=== PATIENT | female | born 1990 | race Caucasian/White ===

== ENCOUNTER 2016-07-30 21:17 | Observation (INO) ==
--- NOTE | 2016-07-30 22:28 | OB/GYN History & Physical ---
Date of Encounter: 07/30/16 Time of Encounter: 22:28 Assessment and Plan (1) Vaginal itching Current visit: Yes Status: Acute Patient has completely benign exam with no blisters, erythema, or discharge. She had a negative vaginosis panel last week. Will do a UA. (2) 28 weeks gestation of Current visit: Yes Status: Acute History of Present Illness Chief complaint: Vaginal itching HPI: Ms. Thompson is a 26 year old female, at 28 weeks and 4 days who presents today with vaginal itching. Patient reports 3 days of vaginal itching. States that she has been using monostat because she believed it might be a yeast infection. She reports burning with urination, swelling, blisters, and cervical tenderness. She denies any fever/chills, shortness of breath, chest pain, other urinary symptoms, vaginal discharged. On exam patient has no erythema, swelling or blisters. She was tender to palpation in some areas. She had no significant vaginal discharge. Past Med Surg Social Fam HX - Past Medical History Medical history: asthma, other Psychiatric history: anxiety, depression, PTSD - Past Surgical History Surgical History: - Social History Smoking Status: Never smoker Smokeless Tobacco Status: No Alcohol use: none Drug use: none - Family History Mother Adopted: No Family Member Ethnicity: Non- Living Status: Still Living Hx Family Cardiac Disorders: No Hx Family Respiratory Disorders: No Hx Family Cancer: No Hx Family GI Disorders: No Hx Family Endocrine Disorder: Yes (hypothyroidism) Hx Family Neuromuscular Disorders: No Hx Family Neurologic Disorders: No Hx Family HEENT Disorders: No Hx Family Autoimmune Disorders: No Father Adopted: [place]: Isai Family Member Ethnicity: Non- Living Status: Still Living Hx Family Cardiac Disorders: No Hx Family Respiratory Disorders: No Hx Family Cancer: No Hx Family GI Disorders: No Hx Family Genitourinary Disorders: No Hx Family Endocrine Disorder: No Hx Family Musculoskeletal Disorders: No Hx Family Neuromuscular Disorders: No Hx Family Neurologic Disorders: No Hx Family HEENT Disorders: No Hx Family Autoimmune Disorders: No Hx Family Reproductive Disorders: No Hx Family Psychosocial Disorders: No Hx Family Medical Disorders: No Obstetrical History - Pregnancies : 5 Para: 3 Medications and Allergies Caplet 1 tab PO DAILY 03/15/16 [History] Progesterone 200 mg VG DAILY 07/07/16 [History] Allergies Penicillins Allergy (Verified 06/30/16 17:24) Difficulty Breathing hives Review of System OB - Constitutional Constitutional ROS IM: no fever(s) - Cardiovascular Cardiovascular: no chest pain, no leg edema, no lightheadedness, no palpitations - Respiratory Respiratory: no cough, no dyspnea, no wheezing - Gastrointestinal Gastrointestinal: cramping, no abdominal pain, no change in bowel habits, no change in stool character, no diarrhea, no nausea, no vomiting - Genitourinary Genitourinary: pelvic pain, vaginal pruritis, no difficulty urinating, no difficulty voiding, no urinary frequency, no urinary hesitancy, no urinary incontinence, no urinary urgency, no vaginal discharge, no vaginal odor - Neurological Nerological: no syncope Exam - Constitutional Constitutional: well developed, well nourished, no acute distress - HEENT HEENT: Normocephaly, Mucus Membranes Moist - Lungs Respiratory exam: CTAB - Abdomen Abdomen: Present: bowel sounds normal - Extremities Extremities exam: warm - Vagina Vagina: Present: normal moisture. Absent: discharge, ulceration Results All other labs normal. - VTE Reasons for not Prescribing Prophylaxis: Treatment not Indicated - Low risk for VTE
[2016-07-30 22:29] LABS: Bilirubin,Urine Negative (Negative); Blood,Urine Negative (Negative); Clarity,Urine Cloudy (Clear); Color,Urine Yellow (Yellow); Glucose,Urine (UA) Normal (Normal); Ketones,Urine Negative (Negative); Leukocyte Esterase,Urine Moderate (Negative); Nitrite,Urine Negative (Negative); Protein,Urine Negative (Neg-Trace); Specific Gravity,Urine 1.009 (1.010-1.025); Urobilinogen,Urine Normal (Normal)
[2016-07-30 22:30] LABS: Bacteria,Urine Few per hpf (None-Few); Hyaline Casts,Urine None Seen per lpf (None-Few); RBC,Urine 0-3 per hpf (0-3); Squamous Epithelial Cell,Urine Many per lpf (None-Few)
[2016-07-30 22:37] LABS: Calcium Oxalate Crystals,Urine Present
--- NOTE | 2016-07-30 22:52 | Discharge Summary ---
Date of Encounter: 07/30/16 Time of Encounter: 22:54 - Discharge Diagnosis (1) Vaginal itching Priority: Primary Status: Acute Comments: Patient with vaginal itching. Urine analysis largely normal and recent vaginosis panel negative. Exam benign with no erythema or swelling. No significant vaginal discharge. Patient will be discharged home to follow up with her OB. (2) 28 weeks gestation of Priority: Secondary Status: Acute - Discharge Medications Home Medications: Caplet 1 tab PO DAILY 03/15/16 [History] Progesterone 200 mg VG DAILY 07/07/16 [History] Allergies/Adverse Reactions: Allergies Penicillins Allergy (Verified 06/30/16 17:24) Difficulty Breathing hives Data Procedures and tests throughout hospitalization: Laboratory Tests 07/30/16 22:15 Urine Color Yellow Urine Clarity Cloudy A Urine pH 7.0 Ur Specific [place] 1.009 L Urine Protein Negative Urine Glucose (UA) Normal Urine Ketones Negative Urine Blood Negative Urine Nitrite Negative Urine Bilirubin Negative Urine Urobilinogen Normal Ur Leukocyte Esterase Moderate H Urine Microscopic RBC 0-3 Urine Microscopic WBC 5-15 H Ur Squamous Epith Cells Many H Calcium Oxalate Crystal Present Urine Bacteria Few Hyaline Casts None Seen Ur Culture Indicated? YES A Labs on day of discharge: Labs from last 24 hours 07/30/16 22:15 Urine Color Yellow Urine Clarity Cloudy A Urine pH 7.0 Ur Specific [place] 1.009 L Urine Protein Negative Urine Glucose (UA) Normal Urine Ketones Negative Urine Blood Negative Urine Nitrite Negative Urine Bilirubin Negative Urine Urobilinogen Normal Ur Leukocyte Esterase Moderate H Urine Microscopic RBC 0-3 Urine Microscopic WBC 5-15 H Ur Squamous Epith Cells Many H Calcium Oxalate Crystal Present Urine Bacteria Few Hyaline Casts None Seen Ur Culture Indicated? YES A - Impressions Urine analysis largely within normal limits. Date of admission: 07/30/16 21:17 Discharging clinician: Frederick Patterson Anticipated date of discharge: 07/30/16 - Patient Status Disposition: Home, Self-Care Condition: Good Functional capacity at discharge: independent ambulation Overall status at discharge: patient is back to baseline - Discharge Instructions Follow Up With: Loan Fay MD [Partnered Physician] - Additional Instructions: Please call to make a follow up appointment with your OB. - Diet and Activity Activity: resume usual activities as tolerated Diet: advance to your usual diet Hospital Course UPHOLSTERY TECH Time Attestation: Total time spent providing and/or coordinating discharge services: Exam - Constitutional General appearance IM: A&O X 3, no acute distress - Respiratory Respiratory exam: Present: CTAB. Absent: decreased breath sounds, wheezes - Cardiovascular Cardiovascular exam IM: Absent: irregular rhythm - GI/Abdominal GI/Abdominal exam IM: soft - Extremities Exam Extremities exam IM: Present: normal inspection. Absent: pedal edema - Neurological Exam Neurological exam: alert, CN II-XII intact, oriented X3 - VTE Reasons for not Prescribing Prophylaxis: Treatment not Indicated - Low risk for VTE
== END 2016-07-30 22:56 | disposition home or self-care (01) ==
LOC: 1NENULAB
PROVIDERS: ADMIT Obstetrics & Gynecology; ATTEND Obstetrics & Gynecology

== ENCOUNTER 2016-08-03 17:02 | Observation (INO) ==
[2016-08-03 18:01] LABS: Bilirubin,Urine Negative (Negative); Blood,Urine Trace-intact (Negative); Color,Urine Yellow (Yellow); Glucose,Urine (UA) Normal (Normal); Ketones,Urine Negative (Negative); Leukocyte Esterase,Urine Trace (Negative); Nitrite,Urine Negative (Negative); Protein,Urine Negative (Neg-Trace); Specific Gravity,Urine 1.015 (1.010-1.025); Urobilinogen,Urine Normal (Normal)
[2016-08-03] MEDS ORDERED: Ringers Solution, Lactated 500 ML IVC ONE (18:03)
[2016-08-03 18:04] LABS: Bacteria,Urine Few per hpf (None-Few); Hyaline Casts,Urine None Seen per lpf (None-Few); RBC,Urine 0-3 per hpf (0-3); Squamous Epithelial Cell,Urine Many per lpf (None-Few)
[2016-08-03 18:05] LABS: Clarity,Urine Hazy (Clear)
[2016-08-03] MEDS ORDERED: Ringers Solution, Lactated 1,000 ML IVC SCH (18:15)
--- NOTE | 2016-08-10 07:40 | OB Labor Progress Note ---
Date of Encounter: 08/03/16 Time of Encounter: 18:50 Labor Progress Note - Plan Plan: Jay is a 26 y/o with a h/o multiple visits to L and D who came in saying complaining of ctxs, FFN was neg, cervix was closed, UA unremarkable, FHT CAT 1. Patient discharged.
== END 2016-08-03 19:09 | disposition home or self-care (01) ==
LOC: 1NENULAB → MERGE 17:02
PROVIDERS: ADMIT Student in an Organized Health Care Education/Training Program; ATTEND Student in an Organized Health Care Education/Training Program

== ENCOUNTER 2016-08-26 21:32 | Observation (INO) ==
[2016-08-26 22:14] LABS: Bilirubin,Urine Negative (Negative); Blood,Urine Moderate (Negative); Clarity,Urine Clear (Clear); Color,Urine Yellow (Yellow); Glucose,Urine (UA) Normal (Normal); Ketones,Urine Negative (Negative); Leukocyte Esterase,Urine Negative (Negative); Nitrite,Urine Negative (Negative); Protein,Urine Negative (Neg-Trace); Specific Gravity,Urine 1.015 (1.010-1.025); Urobilinogen,Urine Normal (Normal)
[2016-08-26 22:18] LABS: Hyaline Casts,Urine None Seen per lpf (None-Few); RBC,Urine 0-3 per hpf (0-3); Squamous Epithelial Cell,Urine Many per lpf (None-Few); WBC,Urine 0-3 per hpf (0-3)
[2016-08-26 22:30] LABS: Bacteria,Urine Few per hpf (None-Few)
--- NOTE | 2016-08-26 22:40 | OB/GYN Progress Note ---
Date of Encounter: 08/27/16 Time of Encounter: 22:33 - Assessment and Plan (1) 32 weeks gestation of Status: Acute monitor for 1 hour to r/o active labor monitor FHT continue routine care (2) Round ligament pain Status: Acute supportive care recommend supportive band Tylenol as needed for pain Subjective - Subjective Principal diagnosis: Left lower pelvic pain Interval history: F at [address] Fay pt c/o left lowe quadrant/pelvic pain which started 1 week ago. She reports worseing of pain today, she states that pain went from dull ache to a sharper intermittent pain that lasts a few seconds resolves spontaneously on its own after a few seconds. When laying supine pt states pain in lumbar pain that wraps around to the left groin/pelvic region >L side. Pt states no vaginal discharge, fluid loss, bright red blood or passing of clots. No syncope, lightheadedness, CP, SOB Pt reports 2 previous placental abruptions at 32 and 34 weeks with previous pregnancies. Antepartum ROS: other (plevic pain) Objective - Vital Signs Vital Signs: Intake and Output 08/26/16 08/26/16 08/26/16 07:59 15:59 23:59 Other: Weight 77.7 kg Patient Weight 08/26/16 23:59 Weight 77.7 kg - Exam FHR: auscultation normal Abdomen: Present: normal appearance, soft, gravid, tenderness (mild LLQ ttp, - rebound, guarding, rigidity). Absent: distention Uterus: Present: normal, firm - Labs Labs: Abnormal lab results Urine Blood Moderate (Negative) H 08/26/16 21:50 Ur Squamous Epith Cells Many per lpf (None-Few) H 08/26/16 21:50
== END 2016-08-26 23:45 | disposition home or self-care (01) ==
LOC: 1NENULAB
PROVIDERS: ADMIT Obstetrics & Gynecology; ATTEND Obstetrics & Gynecology

== ENCOUNTER 2016-08-29 14:18 | Observation (INO) ==
[2016-08-29 15:14] LABS: Bilirubin,Urine Negative (Negative); Blood,Urine Small (Negative); Clarity,Urine Turbid (Clear); Color,Urine Yellow (Yellow); Glucose,Urine (UA) Normal (Normal); Ketones,Urine Trace mg/dL (Negative); Leukocyte Esterase,Urine Negative (Negative); Nitrite,Urine Negative (Negative); Protein,Urine 30 mg/dL (Neg-Trace); Specific Gravity,Urine 1.023 (1.010-1.025); Urobilinogen,Urine Normal (Normal)
[2016-08-29 15:15] LABS: Bacteria,Urine Moderate per hpf (None-Few); Squamous Epithelial Cell,Urine Many per lpf (None-Few)
[2016-08-29 15:48] LABS: Calcium Oxalate Crystals,Urine Present
[2016-08-29] MEDS ORDERED: Ondansetron 4 MG/2 ML VIAL IVP ONE (16:13)
[2016-08-29] MEDS ORDERED: Ringers Solution, Lactated 500 ML IVC ONE (16:13)
[2016-08-29] MEDS ORDERED: Acetaminophen 325 MG TABLET PO ONE (16:15)
[2016-08-29] MEDS ORDERED: Ondansetron 4 MG/2 ML VIAL ONE (16:20)
--- NOTE | 2016-08-29 16:20 | OB/GYN Progress Note ---
Date of Encounter: 08/29/16 Time of Encounter: 16:17 - Assessment and Plan (1) Back pain Current Visit: Yes Status: Acute Likely back strain, will try tylenol, advised support belt. Qualifiers: Back pain location: low back pain Chronicity: acute Back pain laterality : bilateral Sciatica laterality: bilateral sciatica Qualified Code(s): M54.42 - Lumbago with sciatica, left side; M54.41 - Lumbago with sciatica, right side (2) 32 weeks gestation of Current Visit: No Status: Acute (3) Dehydration Current Visit: Yes Status: Acute Will give IVF and Zofran. Pt has PO Zofran at home. Subjective - Subjective Principal diagnosis: back pain, 32 weeks gestation, decreased movement, nausea and emesis. Interval history: 26 yo female at 32w6d gestation presents with c/o decreased movement all day, though now the baby is active. She also c/o n/v with little po intake all day and c/o emesis, though now just nausea . She also c/o 2 hr h/o sharp back pain with radiation into bilateral groin. Objective - Vital Signs Vital Signs: Intake and Output 08/29/16 08/29/16 08/29/16 07:59 15:59 23:59 Other: Weight 76.9 kg Patient Weight 08/29/16 23:59 Weight 76.9 kg - Exam FHR: category 1 Auscultation: bilateral: normal Abdomen: Present: gravid Cervical dilation: cl Cervix effacement: th station: high - Labs Labs: Abnormal lab results Urine Clarity Turbid (Clear) A 08/29/16 14:50 Urine Protein 30 mg/dL (Neg-Trace) H 08/29/16 14:50 Urine Ketones Trace mg/dL (Negative) H 08/29/16 14:50 Urine Blood Small (Negative) H 08/29/16 14:50 Urine Microscopic RBC 3-5 per hpf (0-3) H 08/29/16 14:50 Urine Microscopic WBC 5-15 per hpf (0-3) H 08/29/16 14:50 Ur Squamous Epith Cells Many per lpf (None-Few) H 08/29/16 14:50 Urine Bacteria Moderate per hpf (None-Few) H 08/29/16 14:50 Ur Culture Indicated? YES (NO) A 08/29/16 14:50
[2016-08-29] MEDS ORDERED: NIFEdipine 10 MG CAPSULE PO ONE (17:56)
[2016-08-29] MEDS: D5% in Lactated Ringers 1,000 ML IVC SCH (18:07)
[2016-08-29] MEDS ORDERED: Terbutaline 1 MG/ML VIAL SQ ONE (19:09)
[2016-08-29] MEDS ORDERED: *HR* Morphine 2 MG/ML SYRINGE SQ ONE (19:13)
--- NOTE | 2016-08-29 19:13 | OB Labor Progress Note ---
Date of Encounter: 08/29/16 Time of Encounter: 19:09 Labor Progress Note - Subjective Subjective: C/o heartburn and still with low abd pain and pressure. Pt recieved PO Nifedipine and says it didn't help. Pt reports prior intollerance to Magnesium sulfate and h/o tachycardia with brethine. - Vital Signs Vital Signs: BP 136/92 - Cervix Cervix: cl/th/high - Heart Tones Heart Tones: RNST - [place]: UC's q 60 sec - Plan Plan: Will check PIH labs and give Morphine 10 mg SQ and betamethasone due to risk of prematurit. Will give Zantac for heartburn.
[2016-08-29] MEDS ORDERED: Betamethasone Acet/SodPhos 6 MG/ML MDV IM SCH (19:15)
[2016-08-29] MEDS ORDERED: *HR* Morphine 10 MG/ML VIAL SQ ONE (20:00)
[2016-08-29 20:17] LABS: Basophils % 0.3 %; Eosinophils # 0.2 K/mcL (0.0-0.6); Eosinophils % 1.6 %; Hematocrit 30.3 % (35.3-44.9); Immature Granulocytes % 1.4 % (0-4); Immature Platelets 2.8 % (1.1-6.1); Lymphocytes # 1.6 K/mcL (0.6-4.6); Mean Corpuscular Hemoglobin 28.5 pg (28.0-33.3); Mean Corpuscular Volume 86.3 fL (83.0-100.0); Mean Platelet Volume 9.9 fL (9.4-12.4); Monocytes # 1.3 K/mcL (0.0-1.3); Monocytes % 10.7 %; Neutrophils # 8.7 K/mcL (1.6-8.9); Platelet Count 360 K/mcL (140-400); Red Blood Count 3.51 M/mcL (3.82-4.97); Red Cell Distribution Width 12.7 % (11.5-14.5)
[2016-08-29 20:31] LABS: Alanine Aminotransferase 15 Units/L (0-55); Aspartate Amino Transferase 19 Units/L (5-34); BUN/Creatinine Ratio 6 (6-26); Blood Urea Nitrogen 3 mg/dL (7-20); Lactate Dehydrogenase 160 Units/L (159-327); Uric Acid 3.8 mg/dL (2.6-6.0); eGFR For African Americans > 60 (> 60); eGFR For Non-African Americans > 60 (> 60)
--- NOTE | 2016-08-29 22:47 | OB Labor Progress Note ---
Date of Encounter: 08/29/16 Time of Encounter: 20:50 Labor Progress Note - Subjective Subjective: Pt states not feeling uc's since Morphine 10 mg sq - Cervix Cervix: cl/th/-2 - Heart Tones Heart Tones: RNST - [place]: UC's q 2 min. - Plan Plan: Cont. observation.
[2016-08-30] MEDS ORDERED: NIFEdipine 10 MG CAPSULE PO ONE (00:15)
--- NOTE | 2016-08-30 01:24 | OB Labor Progress Note ---
Date of Encounter: 08/30/16 Time of Encounter: 01:13 Labor Progress Note - Subjective Subjective: Initially called to see pt for worsening contractions, and abdominal pain. No vb or lof. Pt no longer c/o nausea. At end of visit pt states she didn't need Ambiens and could probably sleep (Incongruent with initial complaint) On exam manually pt c/o low abdominal discomort, however during u/s she showed no evidence of discomfort. I d/w pt fact that in review of records she was admitted 02/13-02/15 in 2012 and was given magnesium and then didn't deliver until and that was for bleeding. Of note pt states if she doesn't get tonight she doesn't want one until Dr. Fay is event specialist food demonstrator. I advised her that having doctor of choice would not be indication for delivery. - Cervix Cervix: Cl/th/-2 - Heart Tones Heart Tones: RNST - [place]: uc's q 2-3 min. - Interventions Interventions: Repeat Procardia 10 mg given - Plan Plan: Cont. observation
[2016-08-30] MEDS ORDERED: NIFEdipine 10 MG CAPSULE PO PRN (05:16)
--- NOTE | 2016-08-30 05:22 | OB Labor Progress Note ---
Date of Encounter: 08/30/16 Time of Encounter: 05:20 Labor Progress Note - Subjective Subjective: Pt c/o is miserable and noted blood when wiped. She shows klenex in toilet with bright red blood. +GFM - Cervix Cervix: SSE is neg for any evidence of blood - Heart Tones Heart Tones: RNST 150's - [place]: uc's q 2 min - Interventions Interventions: SSE is neg - Plan Plan: No evidence of active bleeding noted, still with stable uc's, cvx closed. Will cont. observation. Will give repeat procardia at 06:30.
--- NOTE | 2016-08-30 11:18 | OB Labor Progress Note ---
Date of Encounter: 08/30/16 Time of Encounter: 11:16 Labor Progress Note - Subjective Subjective: patient still complaining of ctxs Q 2mins - Vital Signs Vital Signs: VSS - Plan Plan: will give Procardia 10mg Q 4hrs till second dose of steroids, give fluid bolus, cont monitring strip, will do with CAT 2 tracing.
[2016-08-30] MEDS ORDERED: Acetaminophen 325 MG TABLET PO PRN (11:48)
[2016-08-30] MEDS ORDERED: NIFEdipine 10 MG CAPSULE PO SCH (12:00)
[2016-08-30] MEDS: D5% in Lactated Ringers 1,000 ML IVC SCH (12:04)
--- NOTE | 2016-09-06 08:47 | OB/GYN History & Physical ---
Date of Encounter: 08/29/16 Time of Encounter: 16:20 Assessment and Plan (1) Back pain Status: Acute Qualifiers: Back pain location: low back pain Chronicity: acute Back pain laterality : bilateral Sciatica laterality: bilateral sciatica Qualified Code(s): M54.42 - Lumbago with sciatica, left side; M54.41 - Lumbago with sciatica, right side (2) 32 weeks gestation of Status: Acute (3) Dehydration Status: Acute History of Present Illness Chief complaint: back pain HPI: 26 yo female at 32w6d gestation presents with c/o decreased movement all day, though now the baby is active. She also c/o n/v with little po intake all day and c/o emesis, though now just nausea . She also c/o 2 hr h/o sharp back pain with radiation into bilateral groin. Past Med Surg Social Fam HX - Past Medical History Source: patient, old records reviewed Medical history: other Psychiatric history: anxiety, depression, PTSD - Past Surgical History Surgical History: - Social History Smoking Status: Never smoker Smokeless Tobacco Status: No Alcohol use: none Drug use: none - Family History Mother Adopted: No Family Member Ethnicity: Non- Living Status: Still Living Hx Family Cardiac Disorders: No Hx Family Respiratory Disorders: No Hx Family Cancer: No Hx Family GI Disorders: No Hx Family Genitourinary Disorders: No Hx Family Endocrine Disorder: Yes (thyroid disease) Hx Family Musculoskeletal Disorders: No Hx Family Neuromuscular Disorders: No Hx Family Neurologic Disorders: No Hx Family HEENT Disorders: No Hx Family Autoimmune Disorders: Yes (Lupus) Hx Family Reproductive Disorders: No Hx Family Psychosocial Disorders: No Hx Family Medical Disorders: No Father Adopted: No Family Member Ethnicity: Non- Living Status: Still Living Hx Family Cardiac Disorders: No Hx Family Respiratory Disorders: No Hx Family Cancer: No Hx Family GI Disorders: No Hx Family Endocrine Disorder: No Hx Family Neuromuscular Disorders: No Hx Family Neurologic Disorders: No Hx Family HEENT Disorders: No Hx Family Autoimmune Disorders: No Obstetrical History - Pregnancies : 5 Medications and Allergies Caplet 1 tab PO DAILY 03/15/16 [History] Progesterone 200 mg VG DAILY 07/07/16 [History] Ferrous Fumarate/Iron Ps Cplx 325 mg PO BID 08/26/16 [History] Allergies Penicillins Allergy (Verified 06/30/16 17:24) Difficulty Breathing hives Exam - Constitutional Constitutional: well developed, well nourished - HEENT HEENT: EOMI, PERRL - Neck Neck exam: full ROM - Lungs Respiratory exam: CTAB - Cardiovascular Cardiovascular exam: RRR - Abdomen Abdomen: Present: gravid, non tender - Extremities Extremities exam: full ROM Deep Tendon Reflex Grade: 2+ Normal - Cervix Dilation: 0 Effacement: 40 Station: -2 Results Result Diagrams: 08/29/16 20:05 08/29/16 20:05 Abnormal lab results WBC 11.9 K/mcL (4.3-11.1) H 08/29/16 20:05 RBC 3.51 M/mcL (3.82-4.97) L 08/29/16 20:05 Hgb 10.0 g/dL (11.5-15.4) L 08/29/16 20:05 Hct 30.3 % (35.3-44.9) L 08/29/16 20:05 BUN 3 mg/dL (7-20) L 08/29/16 20:05 Creatinine 0.53 mg/dL (0.57-1.11) L 08/29/16 20:05 Urine Clarity Turbid (Clear) A 08/29/16 14:50 Urine Protein 30 mg/dL (Neg-Trace) H 08/29/16 14:50 Urine Ketones Trace mg/dL (Negative) H 08/29/16 14:50 Urine Blood Small (Negative) H 08/29/16 14:50 Urine Microscopic RBC 3-5 per hpf (0-3) H 08/29/16 14:50 Urine Microscopic WBC 5-15 per hpf (0-3) H 08/29/16 14:50 Ur Squamous Epith Cells Many per lpf (None-Few) H 08/29/16 14:50 Urine Bacteria Moderate per hpf (None-Few) H 08/29/16 14:50 Ur Culture Indicated? YES (NO) A 08/29/16 14:50 All other labs normal. - VTE Reasons for not Prescribing Prophylaxis: Treatment not Indicated - Low risk for VTE
== END 2016-08-30 13:04 | disposition left against medical advice (07) ==
LOC: 1NENULAB
PROVIDERS: ADMIT Obstetrics & Gynecology; ATTEND Obstetrics & Gynecology

== ENCOUNTER 2016-08-30 20:15 | Observation (INO) ==
[2016-08-30] MEDS ORDERED: Betamethasone Acet/SodPhos 6 MG/ML MDV IM SCH (21:00)
--- NOTE | 2016-08-31 07:09 | OB/GYN Progress Note ---
Date of Encounter: 08/31/16 Time of Encounter: 07:07 - Assessment and Plan (1) contractions Status: Acute Jay is a 26 y/o @ 33+ weeks well known to us who came in saying she was bleeding SSE was done which showed a lot of blood tinged fluid in the vagina, The fluid was evacuated and the cervix was noted to be closed and the vagina was dry Impression: Nursing expressed concern that the patient has done something similar like this before where she tried to inject a substance in her vagina. I placed her on the monitor for 2 hrs and with heart CAT 1, she was discharged to follow up outpt. Objective - Vital Signs Vital Signs: Intake and Output 08/30/16 08/30/16 08/31/16 15:59 23:59 07:59 Other: Weight 79 kg
== END 2016-08-30 22:53 | disposition home or self-care (01) ==
LOC: 1NENULAB
PROVIDERS: ADMIT Student in an Organized Health Care Education/Training Program; ATTEND Student in an Organized Health Care Education/Training Program

== ENCOUNTER 2016-09-06 16:45 | Observation (INO) ==
[2016-09-06] MEDS ORDERED: Acetaminophen 325 MG TABLET PO ONE (19:46)
--- NOTE | 2016-09-06 20:48 | OB/GYN Progress Note ---
Date of Encounter: 09/06/16 Time of Encounter: 20:41 - Assessment and Plan (1) 34 weeks gestation of Status: Acute patient comes in today saying that she is having some bleeding. She frequently comes in to L and D with the same complaints with reports from nursing that she has been known to inject fluid into her vagina. She has been evaluated multiple times on L and D with the same complaints and sent home. SSE done and fluid that looked like water was in the vagina. After the evacuation, the cervix was noted to be closed and there was no active bleeding or leaking noted. Patient was kept on the monitor for 3 hrs and with T CAT 1, the patient was discharged home. Objective - Vital Signs Vital Signs: Intake and Output 09/06/16 09/06/16 09/06/16 07:59 15:59 23:59 Other: Weight 79.5 kg Patient Weight 09/06/16 23:59 Weight 79.5 kg
== END 2016-09-06 20:16 | disposition home or self-care (01) ==
LOC: 1NENULAB
PROVIDERS: ADMIT Student in an Organized Health Care Education/Training Program; ATTEND Student in an Organized Health Care Education/Training Program

== ENCOUNTER 2016-09-07 03:10 | Observation (INO) | END 2016-09-07 05:13 | disposition home or self-care (01) | LOC: 1NENULAB | PROVIDERS: ADMIT Student in an Organized Health Care Education/Training Program; ATTEND Student in an Organized Health Care Education/Training Program ==

== ENCOUNTER 2016-09-07 05:37 | Observation (INO) | END 2016-09-07 09:04 | disposition home or self-care (01) | LOC: 1NENULAB | PROVIDERS: ADMIT Student in an Organized Health Care Education/Training Program; ATTEND Student in an Organized Health Care Education/Training Program ==

== ENCOUNTER 2016-09-17 03:23 | Observation (INO) ==
--- NOTE | 2016-09-17 04:52 | OB/GYN Progress Note ---
Date of Encounter: 09/17/16 Time of Encounter: 04:30 (CNM@0600) - Assessment and Plan (1) 35 weeks gestation of Current Visit: Yes Status: Acute -Well known to the OBGYN Department with multiple visits for "gush of fluid" per vagina. -Patient has closed cervix, no fluid appreciated, contractions on monitor stop when patient is talking/answering questions -FHR WNL. -Patient feels comfortable going home once urine shows no abnormalities PLan -Await urine -Discharge home if FHR, urine, contractions WNL (2) False labor Current Visit: Yes Status: Acute CNM: Pt examined with speculum fluid noted in posterior fornix nitrazine and fern negative, fluid in cup patient collected in restroom pink tinged nitrazine positive but fern negative. Pt seem with waves on toco similar to contractions, no contractions palpated by RN at time. cervix remains closed. Discharged home in stable condition with labor precautions and when to call. (3) NST (non-stress test) reactive Current Visit: Yes Status: Acute baseline 125 Subjective - Subjective Principal diagnosis: Pt concerned for PROM Interval history: 26F, , 35w4d, well known to the OBGYN practice, c/c that her water broke. States that she felt a gush of fluid around 8pm and started to have contractions. Patient states contractions are painful. Otherwise she is asymptomatic. According to patient, she has a previous history of placental abruption and "T incision from " so she becomes very concerned whenever she has painful contractions. Antepartum ROS: loss of fluid, movement normal, contractions Objective - Vital Signs Vital Signs: Intake and Output 09/16/16 09/16/16 09/17/16 15:59 23:59 07:59 Other: Weight 79.7 kg Patient Weight 09/17/16 23:59 Weight 79.7 kg - Exam FHR: auscultation normal FHR comments: Reactive NST Baseline 125 Auscultation: bilateral: normal Abdomen: Present: normal appearance, soft, gravid, tenderness (RLQ and LLQ ) Uterus: Present: normal, firm Cervical dilation: 1 Cervix effacement: 70 Comments: no changes from previous visit
[2016-09-17 05:11] LABS: Bilirubin,Urine Negative (Negative); Blood,Urine Trace (Negative); Clarity,Urine Cloudy (Clear); Color,Urine Yellow (Yellow); Glucose,Urine (UA) Normal (Normal); Ketones,Urine Negative (Negative); Leukocyte Esterase,Urine Negative (Negative); Nitrite,Urine Negative (Negative); PH,Urine 6.5 pH Units (5.0-8.0); Protein,Urine Negative (Neg-Trace); Specific Gravity,Urine 1.008 (1.010-1.025); Urobilinogen,Urine Normal (Normal)
[2016-09-17 05:14] LABS: Hyaline Casts,Urine None Seen per lpf (None-Few); RBC,Urine 0-3 per hpf (0-3); WBC,Urine 0-3 per hpf (0-3)
[2016-09-17 05:25] LABS: Bacteria,Urine Few per hpf (None-Few); Mucus,Urine Few (Few); Squamous Epithelial Cell,Urine Few per lpf (None-Few)
== END 2016-09-17 06:20 | disposition home or self-care (01) ==
LOC: 1NENULAB

== ENCOUNTER 2016-09-24 05:57 | Inpatient (IN) ==
--- NOTE | 2016-09-24 06:28 | OB/GYN History & Physical ---
Date of Encounter: 09/24/16 Time of Encounter: 06:26 Assessment and Plan (1) with 36 completed weeks gestation Current visit: Yes Status: Acute Planned due to history of T-incision and previous premature deliveries via . Consent form signed and on file. (2) Sterilization Current visit: Yes Status: Acute Bilateral tubal ligation. Consent form signed and on file. (3) Previous section complicating Current visit: No Status: Acute Hx T-incision. Hx x3. History of Present Illness Chief complaint: scheduled HPI: Ms. Thompson is a 26 year old female presents from home for scheduled and sterilization. 36w 4d gestation. Patient is ([id number]). She has not felt any contractions. No gush of fluid today. Patient denies any questions or concerns at this time. Meds: vit. Allergies: PCN. PMH: Postural orthostatic tachycardic syndrome. Anxiety. Depression. PTSD. PSH: x3 w/T-incision. Habits: denies EtOH, tobacco, illicit substances. Blood type: O+ GBS: (-) Rubella: Non-immune HbSAG: non-reactive T. Pallidum: (-) Varicella: (+) Hep C: (-) HIV: non-reactive Past Med Surg Social Fam HX - Past Medical History Medical history: asthma, other Psychiatric history: anxiety, depression, PTSD - Past Surgical History Surgical History: - Social History Smoking Status: Never smoker Smokeless Tobacco Status: No Alcohol use: none Drug use: none - Family History Mother Adopted: No Family Member Ethnicity: Non- Living Status: Still Living Hx Family Cardiac Disorders: No Hx Family Respiratory Disorders: No Hx Family Cancer: No Hx Family GI Disorders: No Hx Family Genitourinary Disorders: No Hx Family Endocrine Disorder: Yes Hx Family Musculoskeletal Disorders: No Hx Family Neuromuscular Disorders: No Hx Family Neurologic Disorders: No Hx Family HEENT Disorders: No Hx Family Autoimmune Disorders: No Hx Family Reproductive Disorders: No Hx Family Psychosocial Disorders: Yes (bipolar) Hx Family Medical Disorders: No Father Adopted: No Family Member Ethnicity: Non- Living Status: Still Living Hx Family Cardiac Disorders: No Hx Family Respiratory Disorders: No Hx Family Cancer: No Hx Family GI Disorders: No Hx Family Endocrine Disorder: No Hx Family Neuromuscular Disorders: No Hx Family Neurologic Disorders: No Hx Family HEENT Disorders: No Hx Family Autoimmune Disorders: No Obstetrical History - Pregnancies : 5 Medications and Allergies Caplet 1 tab PO DAILY 03/15/16 [History] Progesterone 200 mg VG DAILY 07/07/16 [History] Ferrous Fumarate/Iron Ps Cplx 325 mg PO BID 08/26/16 [History] Allergies Penicillins Allergy (Verified 09/17/16 04:18) Difficulty Breathing hives Review of System OB All systems PM: reviewed and no additional remarkable complaints except as stated - Constitutional Constitutional ROS IM: no anorexia, no lethargy - Cardiovascular Cardiovascular: no edema - Respiratory Respiratory: no cough, no dyspnea - Genitourinary Genitourinary: no dysuria, no urinary hesitancy - Muscloskeletal Musculoskeletal: no back pain - Neurological Nerological: no headache(s) - Psychiatric Psychiatric: anxiety, depression Exam - Constitutional Constitutional: well developed, well nourished, no acute distress, average body habitus - HEENT HEENT: Normocephaly, Mucus Membranes Moist - Neck Neck exam: normal inspection - Extremities Extremities exam: normal capillary refill, normal inspection - Comments Comments: CV: RRR. No clicks, rubs, gallops, or murmors. Resp: Symmetric chest rise. No wheeze, rhales, or rhonchi. Results All other labs normal. - Attending Attestation I examined this patient and my medical decision-making was reviewed with the SERVICES HOST/PA/Advanced Practice Nurse/Resident Physician. I agree with the documented findings, disposition and treatment plan as described except to the extent set forth below.
[2016-09-24] MEDS ORDERED: Ringers Solution, Lactated 1,000 ML ONE ×2 (06:52→07:29)
[2016-09-24] MEDS ORDERED: *HR* Morphine Sulfate/PF 5 MG/10 ML AMPUL ONE (07:12)
[2016-09-24] MEDS ORDERED: *HR* FentaNYL (PF) 100 MCG/2 ML VIAL ONE (07:12)
[2016-09-24] MEDS ORDERED: *HR* Oxytocin 10 UNIT/ML VIAL IM ONE (07:13)
[2016-09-24] MEDS ORDERED: Metoclopramide 10 MG/2 ML VIAL IVP ONE (07:29)
[2016-09-24] MEDS ORDERED: Ringers Solution, Lactated 1,000 ML IVC ONE (07:29)
[2016-09-24] MEDS ORDERED: Famotidine 20 MG/2 ML VIAL IVP ONE (07:29)
[2016-09-24] MEDS ORDERED: Ringers Solution, Lactated 1,000 ML IVC SCH ×2 (07:30→14:23)
[2016-09-24] MEDS ORDERED: MetroNIDAZOLE 500 MG/100 ML 500 MG/100 ML BAG IVPB ONE (07:31)
[2016-09-24] MEDS ORDERED: ceFAZolin 2,000 MG in D5% in Water 100 ML IVPB ONE (07:31)
--- NOTE | 2016-09-24 07:31 | Anesthesia Evaluation PreOp ---
Date of Encounter: 09/24/16 Time of Encounter: 07:29 - Past History Planned Operation: Repeat Cardiac History: Other (POTS) Pulmonary History: Asthma RAIL BONDER History: Denies Any Significant HX Other Medical History: Denies Any Significant HX Anesthesia History: No Prior Anesthetic Complications, Past Anesthesia : Yes (IUP 36+4 weeks, ) Alcohol Use: none Drug use: none Medications and Allergies Caplet 1 tab PO DAILY 03/15/16 [History] Progesterone 200 mg VG DAILY 07/07/16 [History] Ferrous Fumarate/Iron Ps Cplx 325 mg PO BID 08/26/16 [History] Allergies Penicillins Allergy (Verified 09/17/16 04:18) Difficulty Breathing hives - Meds/Allergy Pre-op Review Medications Reviewed: Yes Allergies Reviewed: Yes Beta Blockers on Current Med List: No Anesthesia Results - Labs 09/24/16 06:20 Anesthesia Exam 3 Temp 97.7 BP 123/77 Pulse 88 Resp 16 SpO2 100% Height: 5'6''/1.68 m Weight: 174 lbs/79.1 kg NPO (# of Hours): 8 Pain Scale: 0 Pain Scale Used: Numeric (1 - 10) - HEENT Pupil (Motor): EOMI Mallampati: II Teeth: Normal Oral Opening: Greater than 3 - RAIL BONDER LOC: Oriented RAIL BONDER Motor: Normal RUE, Normal LUE, Normal RLE, Normal LLE, Normal Face RAIL BONDER Sensory: Normal: RUE, LUE, RLE, LLE, Face - Cardiac Rhythm: Regular Murmur: None - Pulmonary Breath Sounds: bilateral Clear Respiratory Effort: Symmetrical Anesthesia Assess/Plan ASA Score: 2 Modified [place] Scale for Level of Consciousness: Cooperative, oriented, and tranquil Anesthetic Plan: Regional Monitoring Plan: Standard Monitors Recovery Plan: PACU
[2016-09-24 07:47] LABS: Basophils % 0.3 %; Eosinophils # 0.2 K/mcL (0.0-0.6); Eosinophils % 1.6 %; Hematocrit 33.5 % (35.3-44.9); Hemoglobin 10.7 g/dL (11.5-15.4); Immature Granulocytes % 1.1 % (0-4); Lymphocytes # 1.8 K/mcL (0.6-4.6); Lymphocytes % 15.5 %; Mean Corpuscular HGB Conc 31.9 g/dL (31.6-35.5); Mean Corpuscular Hemoglobin 28.2 pg (28.0-33.3); Mean Corpuscular Volume 88.2 fL (83.0-100.0); Mean Platelet Volume 10.2 fL (9.4-12.4); Monocytes # 1.2 K/mcL (0.0-1.3); Monocytes % 10.4 %; Neutrophils # 8.4 K/mcL (1.6-8.9); Platelet Count 342 K/mcL (140-400); Red Cell Distribution Width 14.9 % (11.5-14.5); Segmented Neutrophils % 71.1 %
[2016-09-24] MEDS ORDERED: *HR* HYDROmorphone (PF) 1 MG/ML SYRINGE IVP PRN ×2 (08:19→09:48)
--- NOTE | 2016-09-24 08:22 | Anesthesia Procedures ---
Date of Encounter: 09/24/16 Time of Encounter: 08:22 Procedures: Anesthesia - Epidural/Spinal Patient ID/Chart reviewed: Yes Patient examined: Yes OB Eval: Gestational age: 38 OB Eval: : 5 OB Eval: Hx Para: 3 OB Eval: Dilated at (cm): 3 OB Eval: Contractions: Non-stressed pattern Supplemental Oxygen: None/Room Air Site Prep: Aseptic Technique, Sterile prep and drape, Povidone-Iodine 1% Patient position: upright Local Anesthetic: Lidocaine 1% Amount of Local Anesthetic used: 3 Interspace Used: L2-L3 Loss of Resistance (JACKIE): No Blood: No CSF: Yes Paresthesia: No Spinal Needle Gauge: 25 Spinal Dose: marcaine 12mg, duramorph .25, fentanyl 7 mcg Procedure: aseptic, caprice well, no complications Vitals + FHT's: 140/88 72 16 fht 144
[2016-09-24] MEDS ORDERED: Ondansetron 4 MG/2 ML VIAL ONE (09:18)
--- NOTE | 2016-09-24 09:28 | OB/GYN Procedure Note ---
Section - Date of procedure: 09/24/16 Preop diagnosis: desires repeat , desires sterilization Post-op diagnosis: same (Left ovarian cyst) Procedure: repeat low transverse, bilateral tubal ligation, other (Left ovarian cystotomy) Surgeon: Loan Fay Estimated blood loss (cc): 300 Anesthesiologist: Chris Perales Brand Lead: Rene Hendrickson Anesthesia Type: Spinal section complications: none Disposition: L&D Recovery Room Specimens: Placenta, Cord segment, Cord blood, Right tube segment, Left tube segment - (s) A Infant Delivery Date: 09/24/16 Infant Delivery Time: 08:34 Presentation: vertex Position: LOT Route of delivery: other Gender: Female Viability: Viable Pounds: 6 Ounces: 11 Gram Weight: 3040 kg at 1 minute: 8 at 5 minutes: 9 Shoulder Dystocia: not encountered Specimens collected: cord blood (Bilateral tubal segments) Placenta: complete extraction Cord: 3 umbilical vessels - Narrative Narrative: The patient was taken to the operating room and given spinal anesthesia adequate for abdominal and pelvic surgery. She was prepped and draped in the usual sterile fashion. Timeout was completed. A Pfannenstiel skin incision was made through the previous scar and sharply dissected down to the fascia. The fascia was incised in the midline and extended bilaterally. 2 straight [place] clamps were placed on the inferior fascial edge and the fascia was bluntly and sharply dissected away from the rectus muscles. This was repeated superiorly. The rectus muscles were bluntly dissected. Peritoneum was sharply entered and then extended superiorly and inferiorly confirming there were no anterior bowel adhesions. Bladder blade was placed to protect the bladder. Vesicouterine peritoneum was incised and reflected inferiorly and the bladder blade was replaced to protect the bladder. A low transverse incision was then made through the thin and ballooning lower uterine segment down to the amnion in the midline with clear amniotic fluid seen. This was extended bluntly bilaterally. This was followed by the vertex delivery of a viable and vigorous female weighing 6#11 oz with Apgars of 8 at 1 minute and 9 at 5 minutes. was placed on the maternal abdomen. The cord was clamped and cut after a delay. was handed to the nursery care team. Cord blood was obtained. The placenta was delivered spontaneous and intact. The uterine cavity was digitally palpated and wiped clean with a moist lap sponge. There were no placental remnants identified. Clamps were placed on the uterine angles. A ring forcep is used to dilate the cervix and then placed off the operating field. The uterine incision was closed using 0 Vicryl suture in a running, locking fashion. A second imbricating layer completed the uterine closure with 0 Vicryl suture. Good hemostasis was achieved. Attention was then placed on the fallopian tubes. The tubes and ovaries appeared grossly normal bilaterally with a 2-3 cm simple cyst noted on the left ovary. As the left fallopian tube and ovary were elevated for inspection, the ovarian cyst started draining clear fluid. The left fallopian tube was grasped with a Trae clamp and o-plain suture was used to doubly ligate a loop of tube. The loop of tube was then excised and sent to pathology. Good hemostasis was noted in the tubal lumens. This was repeated for the patient's right side. Again good hemostasis noted in the tubal lumens. The uterus was then examined and noted to be hemostatic. The pelvis was then irrigated with a copious amount of sterile water. And again good hemostasis was identified. The peritoneal edges and rectus muscles were then examined and hemostasis achieved. The fascia was then closed using 0 PDS loop in a running nonlocking fashion. Subcutaneous tissue was irrigated with sterile water, good hemostasis was achieved. The skin was then closed using and 4-0 Vicryl in a running subcuticular fashion. The incision was then reinforced with benzoin and Steri-Strips. Good hemostasis was noted. Estimated blood loss was 300cc. The Best was noted to be draining clear yellow urine at the end of the procedure. All sponge and instrument counts are correct at the end of the procedure. The patient was taken to the recovery room in stable condition.
[2016-09-24] MEDS ORDERED: Oxytocin 20 units/ LR 1000 mL 20 UNIT/1,000 ML BAG IVC ONE (10:13)
--- NOTE | 2016-09-24 11:05 | Anesthesia Evaluation Post Op ---
Date of Encounter: 09/24/16 Time of Encounter: 11:04 - Lungs Lungs: Clear Ascult./Percussion - Airway Airway: Non-obstructed - Cardiovascular Regular Rate - Mental Status Mental Status: Alert & Oriented, Answers Appropriately - Pain Pain Scale: 1 Pain Scale used: Numeric (1 - 10) - Nausea Vomiting Nausea Vomiting: Not Present - Hydration Hydration: NPO - Discharge PostOp Status: Transfer Patient to floor (stable, no c/o, transfer to floor)
[2016-09-24] MEDS ORDERED: Naloxone 0.4 MG/ML INJ IVP PRN (14:23)
[2016-09-24] MEDS ORDERED: Rho Immune Globulin 1,500 UNIT SYRINGE IM ONE (14:23)
[2016-09-24] MEDS ORDERED: Metoclopramide 10 MG/2 ML VIAL IVP PRN (14:23)
[2016-09-24] MEDS ORDERED: Ondansetron 4 MG/2 ML VIAL IVP PRN (14:23)
[2016-09-24] MEDS ORDERED: *HR* OxyCODONE/APAP 5/325 TABLET PO PRN (14:23)
[2016-09-24] MEDS ORDERED: Simethicone 80 MG TAB.CHEW PO PRN (14:23)
[2016-09-24] MEDS ORDERED: Sennosides 8.6 MG TABLET PO PRN (14:23)
[2016-09-24] MEDS ORDERED: Oxytocin 20 units/ LR 1000 mL 20 UNIT/1,000 ML BAG IV SCH (14:23)
[2016-09-24] MEDS: Ibuprofen 600 MG TABLET PO PRN (23:36)
[2016-09-25 04:25] LABS: Basophils % 0.3 %; Eosinophils # 0.2 K/mcL (0.0-0.6); Eosinophils % 1.4 %; Hematocrit 35.5 % (35.3-44.9); Hemoglobin 11.3 g/dL (11.5-15.4); Immature Granulocytes % 0.9 % (0-4); Lymphocytes # 1.7 K/mcL (0.6-4.6); Lymphocytes % 11.5 %; Mean Corpuscular HGB Conc 31.8 g/dL (31.6-35.5); Mean Corpuscular Hemoglobin 27.9 pg (28.0-33.3); Mean Corpuscular Volume 87.7 fL (83.0-100.0); Mean Platelet Volume 10.2 fL (9.4-12.4); Monocytes # 1.8 K/mcL (0.0-1.3); Monocytes % 12.2 %; Neutrophils # 10.6 K/mcL (1.6-8.9); Platelet Count 328 K/mcL (140-400); Red Blood Count 4.05 M/mcL (3.82-4.97); Red Cell Distribution Width 14.9 % (11.5-14.5); Segmented Neutrophils % 73.7 %
[2016-09-25] MEDS: Prenatal Vit/FA 1 EACH TABLET PO SCH (09:51)
[2016-09-25] MEDS: Ibuprofen 600 MG TABLET PO PRN ×2 (09:51→20:18)
--- NOTE | 2016-09-25 10:10 | OB/GYN Progress Note ---
Date of Encounter: 09/25/16 Time of Encounter: 10:03 - Assessment and Plan (1) S/P section Current Visit: Yes Status: Acute Ms. Thompson is day 1 s/p planned cesarian section with tubal ligation. No ([id number]). (2) S/P tubal ligation Current Visit: Yes Status: Acute as above Subjective - Subjective Principal diagnosis: s/p cesarian section Interval history: Patient reports her pain is well controlled; has needed ibuprophen x1 since the operation. She has mild lower abdominal pain. Report mild vaginal bleeding, "like a light period." Her appetite is good; she is standing bedside eating. No difficulties with ambulation. Her urinary cath was removed just prior to my evaluation; no spontaneous urination yet. She is passing flatus but has not had a bowel movement. She has no questions or concerns at this time. Patient reports: appetite normal, pain well controlled, ambulating normally [place]: doing well Objective - Vital Signs Latest vital signs: Vital Signs Temp Pulse Pulse Resp BP Pulse Ox 09/25/16 08:15 98.4 F 84 16 94/63 97 09/25/16 06:30 98.4 F 72 72 16 98/62 98 09/24/16 23:40 98.4 F 87 16 107/71 96 09/24/16 23:25 88 15 09/24/16 19:45 98.7 F 94 16 109/70 94 L 09/24/16 14:45 99.2 F 88 16 116/73 09/24/16 13:49 85 16 09/24/16 13:45 98.7 F 89 16 107/68 98 09/24/16 12:45 97.9 F 90 16 110/69 97 09/24/16 12:15 98.7 F 81 16 110/69 09/24/16 11:45 98.5 F 81 16 111/72 97 Intake and Output 09/24/16 09/25/16 09/25/16 23:59 07:59 15:59 Intake Total 120 / 120 Output Total 950 / 950 650 / 650 Balance -830 / -830 -650 / -650 Intake: Oral 120 / 120 Output: Catheter 950 / 950 650 / 650 - Exam Lungs: bilateral: normal Chest: Normal S1, Normal S2 Extremities: Present: normal Abdomen: Present: normal appearance, soft Incision: Present: normal, dry, intact, warm, dressed. Absent: erythematous, suppurative, edematous, skin Uterus: Present: firm Fundal Height: 3 (finger breaths below umbilicus) - Labs Labs: Laboratory Results - last 24 hr 09/25/16 03:57 WBC 14.4 H RBC 4.05 Hgb 11.3 L Hct 35.5 MCV 87.7 MCH 27.9 L MCHC 31.8 RDW 14.9 H Plt Count 328 MPV 10.2 Immature Gran % 0.9 Seg Neutrophils % 73.7 Lymphocytes % 11.5 Monocytes % 12.2 Eosinophils % 1.4 Basophils % 0.3 Neutrophils # 10.6 H Lymphocytes # 1.7 Monocytes # 1.8 H Eosinophils # 0.2 Basophils # 0.0
[2016-09-25] MEDS: Acetaminophen 325 MG TABLET PO PRN (23:44)
[2016-09-26] MEDS: Ibuprofen 600 MG TABLET PO PRN (03:41)
[2016-09-26 05:02] LABS: Hematocrit 34.3 % (35.3-44.9); Hemoglobin 11.1 g/dL (11.5-15.4); Mean Corpuscular HGB Conc 32.4 g/dL (31.6-35.5); Mean Corpuscular Hemoglobin 28.8 pg (28.0-33.3); Mean Corpuscular Volume 89.1 fL (83.0-100.0); Mean Platelet Volume 10.2 fL (9.4-12.4); Platelet Count 351 K/mcL (140-400); Red Blood Count 3.85 M/mcL (3.82-4.97); Red Cell Distribution Width 15.3 % (11.5-14.5)
[2016-09-26] MEDS: Prenatal Vit/FA 1 EACH TABLET PO SCH (08:22)
[2016-09-26] MEDS: Acetaminophen 325 MG TABLET PO PRN (08:22)
[2016-09-26 08:49] VITALS: BP 120/78
--- NOTE | 2016-09-26 10:03 | Discharge Summary ---
Date of Encounter: 09/26/16 Time of Encounter: 10:01 - Discharge Diagnosis (1) S/P section Priority: Primary Status: Resolved (2) S/P tubal ligation Priority: Secondary Status: Resolved (3) with 36 completed weeks gestation Priority: Secondary Status: Resolved - Discharge Medications Prescriptions: Acetaminophen w/Cod 300-30 mg [Tylenol w/Codeine #3] 1 each PO Q4HR PRN #30 tablet PRN Reason: Pain Ibuprofen [Motrin] 400 mg PO Q4HR PRN #30 tablet PRN Reason: Cramping Docusate [Colace] 100 mg PO BID #20 capsule Home Medications: Caplet 1 tab PO DAILY 03/15/16 [History] Ferrous Fumarate/Iron Ps Cplx 325 mg PO BID 08/26/16 [History] Acetaminophen w/Cod 300-30 mg [Tylenol w/Codeine #3] 1 each PO Q4HR PRN #30 tablet 09/26/16 [Rx] Docusate [Colace] 100 mg PO BID #20 capsule 09/26/16 [Rx] Ibuprofen [Motrin] 400 mg PO Q4HR PRN #30 tablet 09/26/16 [Rx] Allergies/Adverse Reactions: Allergies Penicillins Allergy (Verified 09/17/16 04:18) Difficulty Breathing hives Data Procedures and tests throughout hospitalization: Laboratory Tests 09/24/16 09/25/16 09/26/16 06:20 03:57 04:44 WBC 11.8 H 14.4 H 10.4 RBC 3.80 L 4.05 3.85 Hgb 10.7 L 11.3 L 11.1 L Hct 33.5 L 35.5 34.3 L MCV 88.2 87.7 89.1 MCH 28.2 27.9 L 28.8 MCHC 31.9 31.8 32.4 RDW 14.9 H 14.9 H 15.3 H Plt Count 342 328 351 MPV 10.2 10.2 10.2 Immature Gran % 1.1 0.9 Seg Neutrophils % 71.1 73.7 Lymphocytes % 15.5 11.5 Monocytes % 10.4 12.2 Eosinophils % 1.6 1.4 Basophils % 0.3 0.3 Neutrophils # 8.4 10.6 H Lymphocytes # 1.8 1.7 Monocytes # 1.2 1.8 H Eosinophils # 0.2 0.2 Basophils # 0.0 0.0 Labs on day of discharge: Labs from last 24 hours 09/26/16 04:44 WBC 10.4 RBC 3.85 Hgb 11.1 L Hct 34.3 L MCV 89.1 MCH 28.8 MCHC 32.4 RDW 15.3 H Plt Count 351 MPV 10.2 Date of admission: 09/24/16 05:57 Primary care physician: Danielle Arora SIZE WORKER Discharging clinician: Erwin Nazario Anticipated date of discharge: 09/26/16 - Patient Status Disposition: Home, Self-Care Condition: Good Functional capacity at discharge: independent ambulation Overall status at discharge: patient is progressing back to baseline - Discharge Instructions Follow Up With: Loan Fay MD [Partnered Physician] - - Diet and Activity Activity: increase activity as tolerated Diet: advance to your usual diet Hospital Course Reason for admission: section, IUP at term Delivery: section Episiotomy: none Laceration: none Other procedures: none complications: none Discharge diagnosis: IUP at term delivered baby: female Time Attestation: Total time spent providing and/or coordinating discharge services: Time Spent: Less than 30 minutes - VTE Documentation of Mechanical Device: Intermittent pneumatic compression device Exam - Constitutional Vitals: Temp Pulse Resp BP Pulse Ox 98.4 F 83 16 120/78 96 09/26/16 08:46 09/26/16 08:46 09/26/16 08:46 09/26/16 08:46 09/26/16 08:46 General appearance IM: A&O X 3, no acute distress - Respiratory Respiratory exam: Present: CTAB. Absent: respiratory distress - Cardiovascular Cardiovascular exam IM: Present: RRR. Absent: irregular rhythm - GI/Abdominal GI/Abdominal exam IM: normal bowel sounds Incision: normal, dry, intact - Rectal Rectal exam: deferred - Uterine Tone: Firm Uterus Position: 2 Fingers Below Umbilicus - Extremities Exam Extremities exam IM: Absent: calf tenderness
== END 2016-09-26 12:54 | disposition home or self-care (01) | DRG 765 ==
LOC: 1NENULAB 05:57 → 1NENUOBS 11:54